=== PATIENT | male | born 2005 | race Caucasian/White ===

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

== ENCOUNTER 2023-02-27 11:03 | Emergency (ER) | payer MEDICAID, SELFPAY ==
[2023-02-27 11:09] VITALS: BP 144/83; PULSE 70; RESP 16; TEMP 36.6; O2SAT 100; BMI 21.5
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
[2023-02-27] MEDS: HYDROcodone-acetaminophen 5-325 mg Tablet 1 TAB PO (11:44)
[2023-02-27 12:17] VITALS: BP 123/76; PULSE 71; RESP 14; O2SAT 95
[2023-02-27 12:27] VITALS: BP 123/76; PULSE 71; RESP 14; O2SAT 95
== END 2023-02-27 12:36 | disposition home or self-care (01) ==
PROVIDERS: Emergency Provider Internal Medicine; PCP Nurse Practitioner Family
DX: S52.591A Other fractures of lower end of right radius, initial encounter for closed fracture (principal); V47.5XXA Car driver injured in collision with fixed or stationary object in traffic accident, initial encounter
CPT/HCPCS: 73130; 99283

== ENCOUNTER → 2023-03-28 08:06 | Outpatient (BNVA) | payer MEDICAID, SELFPAY | PROVIDERS: PCP Nurse Practitioner Family; Visit Provider Nurse Practitioner | DX: S60.221A Contusion of right hand, initial encounter; V89.2XXA Person injured in unspecified motor-vehicle accident, traffic, initial encounter; R29.898 Other symptoms and signs involving the musculoskeletal system | CPT/HCPCS: 73110; 99204 ==